=== PATIENT | male | born 1940 | race Asian ===

== ENCOUNTER 2017-02-09 09:02 | Emergency (ER) | payer OTHER ==
[~2017-02-09] VITALS: Ht 170.2 cm; Wt 82.5 kg
[~2017-02-09 09:02] MED LIST: METOPROLOL SUC100 M1 PO; NOR10T PO; SIMVASTATIN20 M1 PO; TRAMADOL HCL50 MG PO; ULORIC40 M1 PO
[2017-02-09 10:00] VITALS: BP 138/85
== END 2017-02-09 10:00 | disposition home or self-care (01) ==
LOC: ED 09:02
DX: S05.02XA Injury of conjunctiva and corneal abrasion without foreign body, left eye, initial encounter (principal); S05.01XA Injury of conjunctiva and corneal abrasion without foreign body, right eye, initial encounter; I10 Essential (primary) hypertension; H40.9 Unspecified glaucoma; E78.00 Pure hypercholesterolemia, unspecified; X58.XXXA Exposure to other specified factors, initial encounter; Y93.89 Activity, other specified; Y99.8 Other external cause status; Y92.89 Other specified places as the place of occurrence of the external cause

== ENCOUNTER 2018-09-22 17:46 | Inpatient (IN) | payer OTHER ==
[~2018-09-22] VITALS: Ht 170.2 cm; Wt 86.9 kg
[~2018-09-22 17:46] MED LIST changes: -METOPROLOL SUC100 M1 PO; +METOPROLOL SUC100 M2 PO
[2018-09-22 17:55] VITALS: Ht 170.2 cm; Wt 86.9 kg
--- NOTE | 2018-09-22 18:03 | NUR ---
PT BIB FAMILY C/C FEVER BODY ACHES CHILL X 1 DAY PLACED ON MONITOR AWAITING FOR DR UMER VELAZQUEZ
--- NOTE | 2018-09-22 18:11 | NUR ---
DR RICO AT BEDSIDE TO CAROLINE
--- NOTE | 2018-09-22 18:23 | NUR ---
PLEASE ENTER FULL NAMES OF SUPPORT TEACHER/RN Patient data collected by (SUPPORT TEACHER):BARRETT VANESSA Assessment reviewed and completed by (RN):SUSHIL WILEY
--- NOTE | 2018-09-22 18:24 | NUR ---
PLEASE ENTER FULL NAMES OF GALLEY COOK/RN Patient data collected by (GALLEY COOK):BARRETT VANESSA Assessment reviewed and completed by (RN):SUSHIL WILEY PT W/ DYSURIA & PER HAS HEMATURIA (PT HAS POOR VISION & CAN'T SEE)
[2018-09-22 18:36] LABS: PLATELET COUNT 181 x10^3mcL (130-400); RED CELL DISTRIBUTION WIDTH 12.7 % (11.5-14.5)
[2018-09-22 18:37] LABS: BASOPHIL % 0 % (0-2)
[2018-09-22 18:43] LABS: CALCIUM 8.9 mg/dL (8.5-10.1); CARBON DIOXIDE 23.2 mmol/L (21-32); CHLORIDE SERUM 101 mmol/L (98-107); CREATININE SERUM 1.7 mg/dL (0.7-1.3); GLUCOSE SERUM 134 mg/dL (74-106); POTASSIUM SERUM 3.6 mmol/L (3.5-5.1); SODIUM SERUM 137 mmol/L (136-145)
[2018-09-22 18:47] LABS: ALBUMIN 3.8 g/dL (3.4-5.0); ALKALINE PHOSPHATASE 83 U/L (46-116); ALT/SGPT 49 U/L (16-63); AST/SGOT 45 U/L (15-37); BILIRUBIN TOTAL 1.6 mg/dL (0.20-1.00); MAGNESIUM 1.7 mg/dL (1.8-2.4)
[2018-09-22 18:49] LABS: TOTAL PROTEIN, SERUM 8.3 g/dL (6.4-8.2)
--- NOTE | 2018-09-22 19:05 | NUR ---
REPORT RECEIVED FROM BARRETT [place]. PT AWAKE AND ALERT, LAYING IN POSITION OF COMFORT, 2 BED RAILS UP, BED IN LOW AND LOCKED POSITION. CALL LIGHT W/IN REACH. DAUGHTER AT BEDSIDE. NAD NOTED AT THIS TIME.
--- NOTE | 2018-09-22 19:10 | NUR ---
1ST LITER INFUSED. 2ND LITER HUNG @ 200 CC/HR.
[2018-09-22 19:42] LABS: microscopic required? YES; urine erythrocyte 3+ (NEGATIVE)
--- NOTE | 2018-09-22 19:42 | NUR ---
DAUGHTER REPORTS THAT PT JUST URINATED, AND THERE WERE BLOOD CLOTS PRESENT
--- NOTE | 2018-09-22 20:30 | NUR ---
PT AWAKE AND ALERT, LAYING IN BED IN POSITION OF COMFORT, BED IN LOW AND LOCKED POSITION, 2 BED RAILS UP. CALL LIGHT W/IN REACH, DAUGHTER AT BEDSIDE. VSS, RESPS E/U, NAD NOTED AT THIS TIME.
--- NOTE | 2018-09-22 20:49 | NUR ---
IV ABX STARTED PER MD ORDER
[2018-09-22] MEDS ORDERED: ISOSORBIDE MONO30 MG PO (21:07)
[2018-09-22] MEDS ORDERED: NOR5 PO (21:07)
[2018-09-22] MEDS ORDERED: GOOD SENSE ASPI81 M3 PO (21:08)
[2018-09-22] MEDS ORDERED: TRUOS OU (21:09)
[2018-09-22] MEDS ORDERED: BETIMOL5 M1 OU (21:09)
[2018-09-22] MEDS ORDERED: LATANOPROST2.5 ML OP (21:09)
--- NOTE | 2018-09-22 21:29 | NUR ---
REPORT GIVEN TO JENNIFER
[2018-09-22 21:32] LABS: CHOLESTEROL/HDL RATIO 3.6; PHOSPHOROUS 1.8 mg/dL (2.5-4.9)
[2018-09-22 21:39] LABS: T3 TOTAL 0.42 ng/mL
[2018-09-22 21:42] LABS: FREE T4 1.21 ng/dL (0.76-1.46); FREE THYROXINE INDEX 3.3 ug/dL (1.4-4.5)
--- NOTE | 2018-09-22 21:45 | NUR ---
RECIEVED PT FROM ED VIA JULIO. DAUGHTER AT BEDSIDE. A/O X4. NO S/SX OF DISTRESS. BREATHING EVEN AND UNLABORED. PT DENIES SOB. PT DENIES CP. PLACED TELE MONITOR 3 SHOWING SR WITH A BUNBLE WITH HR OF 86. BS ACTIVE X4. ABD ROUND AND SOFT TO TOUCH. PT ABULATORY WITH ASSIST. SKIN INTACT. IV INTACT INFUSING NS AT 70 WELL VIA LEFT AC. PT CALM AND COORPERATIVE WITH CARE. BED IN LOW POSITION. SIDE RAILS UP X2. CALL LIGHT WITHIN REACH. WILL CONTINUE TO MONITOR.
[2018-09-22 22:00] VITALS: BP 111/66
[2018-09-22] MEDS ORDERED: ISOSORBIDE DINIT5 M2 PO (22:22)
[2018-09-22] MEDS ORDERED: ALPHAGAN P5 M1 OU (22:26)
[2018-09-22] MEDS ORDERED: DORZOLAMIDE HYD10 ML OU (22:27)
[2018-09-23] VITALS (7 sets, daily range): BP systolic 108–159; BP diastolic 65–93
--- NOTE | 2018-09-23 00:18 | NUR ---
BOLUS NS FROM ED COMPLETE BP 108/65 MAP 77. WILL CONTINUE TO MONITOR.
--- NOTE | 2018-09-23 02:32 | NUR ---
PT IN BED EYES CLOSED. EASILY AROUSED BY VERBAL STIMULI. NO S/SX OF DISTRESS NOTED. CHEST RISE AND FALL OBSERVED APPEARS TO BE EVEN AND UNLABORED. CALL LIGHT WITHIN REACH. WILL CONTINUE TO MONITOR.
--- NOTE | 2018-09-23 06:02 | NUR ---
PT RESTING IN BED EYES CLOSED. EASILY AROUSDE BY VERBAL STIMULI. NO S/SX OF DISTRESS AT THIS TIME. CHEST RISE AND FALL OBSERVED. BREATHING EVEN AND UNLABORED. NO ACUTE CHANGES THROUGHOUT NIGHT. BED IN LOW POSITION. CALL LIGHT WITHIN REACH. WILL CONTINUE ENDORSE CARE TO ON OCMING NURSE.
[2018-09-23 06:16] LABS: BASOPHIL % 0.1 % (0-2); PLATELET COUNT 163 x10^3mcL (130-400); RED CELL DISTRIBUTION WIDTH 13.3 % (11.5-14.5)
[2018-09-23 06:24] LABS: CARBON DIOXIDE 24.4 mmol/L (21-32); CHLORIDE SERUM 109 mmol/L (98-107); CREATININE SERUM 1.3 mg/dL (0.7-1.3); GLUCOSE SERUM 105 mg/dL (74-106); MAGNESIUM 1.9 mg/dL (1.8-2.4); PHOSPHOROUS 3.2 mg/dL (2.5-4.9); POTASSIUM SERUM 3.9 mmol/L (3.5-5.1); SODIUM SERUM 143 mmol/L (136-145)
--- NOTE | 2018-09-23 07:40 | NUR ---
RC'D PT RESTING IN BED WITH NO APPARENT SIGNS OF DISTRESS. A/A/O/X4, SPEECH CLEAR AND APPRORPIATE. DENIES READ/DIZZINESS. ON TELE, DENIES CHEST PAIN/PRESSURE. PALP PULSES. RESPIRATIONS EQUAL AND UNLABORED. LUNGS CTA. ON RA, DENIES SOB. ABDOMEN SOFT AND NONTENDER. ACTIVE BS. DENIES N/V. INCONINTENT AT TIMES. GENERALIZED WEAKNESS. SKIN C/D/I. DENIES PAIN AT THIS TIME. IV PATENT AND INTACT. BED IN LOW POSITION. CALL LIGHT IN REACH. WILL CONITNUE TO MONITOR
--- NOTE | 2018-09-23 08:51 | NUR ---
AM MEDICATIONS GIVEN. PT TOLERATED WELL. RESPIRAITONS EQUAL ANDUNLABORED. ON RA, DENIES SOB. PT DENIES PAIN AT THIS TIME. BE DIN LOW POSITION. CALL LIGHT ION REACH. WILL CONTINUE TO MONITOR
--- NOTE | 2018-09-23 11:35 | NUR ---
PT RESTING IN BED WITH NO APPARENT SIGNS OF DISTRESS. RESPIRATIONS EQUAL AND UNLABORED. ON RA, DENIES SOB. PT DENIES PAIN AT THIS TIME. BED IN LOW POSITON. CALL LIGHT INREACH. WILL CONTINUE TO MONITOR
--- NOTE | 2018-09-23 17:37 | NUR ---
PT RESTING IN BED WITH NO APPARENT SIGNS OF DISTRESS. PT REPORTS "HAVING CHILLS" TEMP 99.2. COOLING MEASURES IN PLACE. ON TELE, DENIES CHEST PAIN/PRESSURE. RESPIRTIONS EQUAL AND UNLABORED. ON RA, DENIES SOB. PT REPORTS DISCOMFORT WHEN "PEEING IN THE BEGINNING". GENERALIZED WEAKNESS. NO ACUTE SKIN CHANGES NOTED AT THIS TIME. IV PATENT AND INTACT. BED IN LOW POSITION. CALL LIGHT IN REACH. WILL ENDORSE TO ACCOUNT SERVICES MANAGER RN
--- NOTE | 2018-09-23 18:35 | NUR ---
TEMP 100.4, TYLENOL GIVEN PER EMAR. RESPIRATIONS EQUAL AND UNLABORED. ON RA, DENIES. PT DENIES READ/DIZZINESS. BED IN LOW POSITION. CALL LIGHT IN REACH. WILL CONTINUE TO MONITOR
--- NOTE | 2018-09-23 19:05 | NUR ---
RECEIVED REPORT FROM DAY SHIFT RN. PATIENT WAS SEEN AND IS RESTING COMFORTBALY IN BED. ON ROOM AIR. BREATHING EVEN. NO DISTRESS NOTED. DENIES CHEST PAIN. NO C/O OF PAIN. IV TO LAC INFUSING WELL. PATENT AND INTACT. NO REDNESS OR SWELLING NOTED. TYENOL WAS PREVIOUS ADMINISTERED BY DAY SHIFT RN. WILL REASSESS LATER. PATIENT REFUSED COOLING MEASURES, BUT ALLOWED US TO TURN ON AC. COMFORT AND SAFETY MEASURES MAINTAINED. BED IS LOCKED AND IN THE LOWEST POSITION. SIDE RAILS UP X2. CALL LIGHT IS WITHIN REACH. INSTRUCTED TO CALL FOR ASSISTANCE. WILL CONTINUE TO MONITOR.
--- NOTE | 2018-09-24 01:56 | NUR ---
PATIENT IS RESTING IN BED WITH EYES CLOSED AT THIS TIME. NO DISTRESS NOTED. ON ROOM AIR. BREATHING EVEN. NO SOB OR RESP DISTRESS NOTED. CALL LIGHT IS WITHIN REACH. IV TO THE LAC INFUSING WELL. WILL CONTINUE TO MONITOR.
[2018-09-24 05:38] VITALS: BP 128/72
[2018-09-24 06:06] LABS: BASOPHIL % 0.3 % (0-2); PLATELET COUNT 150 x10^3mcL (130-400); RED CELL DISTRIBUTION WIDTH 13.2 % (11.5-14.5)
[2018-09-24 06:29] LABS: CALCIUM 8.3 mg/dL (8.5-10.1); CARBON DIOXIDE 23.3 mmol/L (21-32); CHLORIDE SERUM 109 mmol/L (98-107); CREATININE SERUM 1.2 mg/dL (0.7-1.3); GLUCOSE SERUM 91 mg/dL (74-106); POTASSIUM SERUM 3.9 mmol/L (3.5-5.1); SODIUM SERUM 144 mmol/L (136-145)
--- NOTE | 2018-09-24 07:00 | NUR ---
PATIENT SLEPT IN INTERVALS TRHOUGHOUT THE NIGHT. NO ACUTE CHANGES NOTED. BREATHING EVEN. NO SOB OR RESP DISTRESS NOTED. NO C/O OF PAIN THROUGHOUT THE NIGHT. DENIES CHEAT PAIN. CALL LIGHT IS WITHIN REACH. ALL NEEDS MEET. COMFORT AND SAFETY MEASURES MAINTAINED. WILL ENDORSE TO DAY SHIFT RN
--- NOTE | 2018-09-24 07:10 | NUR ---
RECEIVED PT FROM [facility]. PT AA/OX4. SPEECH CLEAR. FACE SYMMETRICAL. NO S/S OF ACUTE DISTRESS. NSR ON TELE, HR 67. NO CHEST PAIN. NO SOB ON ROOM AIR. NO N/V. NO CHILLS. NO READ. NO DIZZINESS. IV WNL TO LAC, IV FLUIDS FLOWING. PT CALM/COOPERATIVE. BED IN LOW POSITION. CALL LIGHT WITHIN REACH. SIDE RAILS UP X2. WILL CONT. TO MONITOR.
[2018-09-24 08:48] VITALS: BP 120/66
--- NOTE | 2018-09-24 10:26 | NUR ---
PT RESTING IN BED WITH BOTH EYES CLOSED. NO S/S OF ACUTE DISTRESS. NO SOB ON ROOM AIR. NO S/S OF PAIN. FALL PREC IN PLACE. HR 59 ON TELE, NSR. BED IN LOW POSITION. CALL LIGHT WITHIN REACH. WILL CONT. TO MONITOR.
--- NOTE | 2018-09-24 10:29 | NUR ---
PT LAYING IN BED RESTING WITH BOTH EYES CLOSED. NO S/S OF ACUTE DISTRESS. SINUS LINDY ON TELE, HR 59. NO S/S OF ACUTE DISTRESS. NO SOB ON ROOM AIR. NO S/S OF PAIN. BED IN LOW POSITION. CALL LIGHT WITHIN REACH. WILL CONT. TO MONITOR.
[2018-09-24] MEDS ORDERED: BACTRIM DS1 TAB PO (10:43)
[2018-09-24 11:40] VITALS: BP 118/72
[2018-09-24 11:42] VITALS: BP 118/72
--- NOTE | 2018-09-24 12:31 | NUR ---
PT BEING DISCHARGED TO HOME. AWAKE, ALERT, ORIENTED X4. NO S/S OF ACUTE DISTRESS. NO SOB ON ROOM AIR. NO CHEST PAIN. NO DIZZINESS. NO READ. DENIES PAIN AT THIS TIME. VOIDS FREELY WITH URINAL. OUTPUT 675CC, URINE CLEAR/YELLOW. NO FOUL ODOR NOTED. DISCHARGE EDUCATION PROVIDED TO PATIENT AND DAUGHTER, INSTRUCTED TO FOLLOW UP WITH PCP AT UPCOMING APPT. VERBALIZED UNDERSTANDING PRESCRIPTION PROVIDED TO PATIENT. HOME MEDS X5 RETURNED BACK TO PATIENT. BELONGINGS WITH PATIENT. TELE REMOVED. IV REMOVED FROM LAC, CATHETER IN TACT. PRESSURE APPLIED. SITE WNL. NO REDNESS, NO SWELLING, NO INFILTRATION. PT EATING LUNCH. WILL CONT. TO MONITOR.
--- NOTE | 2018-09-24 12:39 | NUR ---
PT TAKEN TO DISCHARGE LOBBY BY OSVALDO SANDERSON. AMBULATORY WITH FULL ROM, GAIT STEADY. ACCOMPANIED BY DAUGHTER. BELONGINGS/PRESCRIPTION/HOME MEDS WITH PATIENT. AWAKE, ALERT, ORIENTED X4. NO S/S OF ACUTE DISTRESS.
== END 2018-09-24 12:39 | disposition home or self-care (01) | DRG 720 ==
LOC: ED 17:46 → DU 21:47
PROVIDERS: Emergency Medicine; Family Medicine; ADMIT Internal Medicine
DX: A41.9 Sepsis, unspecified organism (principal); N17.0 Acute kidney failure with tubular necrosis; N39.0 Urinary tract infection, site not specified; R31.0 Gross hematuria; N28.1 Cyst of kidney, acquired; E83.42 Hypomagnesemia; R74.0 Nonspecific elevation of levels of transaminase and lactic acid dehydrogenase [LDH]; M10.9 Gout, unspecified; E83.39 Other disorders of phosphorus metabolism; H40.9 Unspecified glaucoma; H35.30 Unspecified macular degeneration; Z79.82 Long term (current) use of aspirin; Z68.28 Body mass index [BMI] 28.0-28.9, adult; Z87.891 Personal history of nicotine dependence; Z88.0 Allergy status to penicillin; Z88.8 Allergy status to other drugs, medicaments and biological substances; E78.00 Pure hypercholesterolemia, unspecified; I12.9 Hypertensive chronic kidney disease with stage 1 through stage 4 chronic kidney disease, or unspecified chronic kidney disease; N18.9 Chronic kidney disease, unspecified; Z82.3 Family history of stroke; M19.90 Unspecified osteoarthritis, unspecified site; E44.1 Mild protein-calorie malnutrition; R73.03 Prediabetes
CPT/HCPCS: 84439; J1956; J7030; Q0092